=== PATIENT | female | born 1960 ===

== ENCOUNTER 2018-09-26 16:57 | Emergency (ER) | payer MEDICAID ==
[2018-09-26] MEDS ORDERED: Sodium Chloride 0.9% 1,000 ML IV ONE (17:27)
--- NOTE | 2018-09-26 17:39 | ED PDOC ---
HPI: Headache Time Seen by Provider: 09/26/18 17:11 Chief Complaint (Nursing): Flu-like Symptoms Chief Complaint (Provider): Headache History Per: Patient History/Exam Limitations: no limitations Onset/Duration Of Symptoms: Days (x1 day) Current Symptoms Are (Timing): Still Present Quality: Pressure Associated Symptoms: Nausea. denies: Blurred Vision, Vomiting Additional Complaint(s): Patient is a 58 year old female who reports onset of headache rated 8/10, since yesterday morning. She states that it is a global headache described as pressure. Patient denies any history of similar headaches in the past. She also has nausea, non bloody diarrhea, tactile fever, and chills for the past x2 days. Patient took Tylenol this morning with no relief. She denies any sick contact or travel. Otherwise: (+) global headache, (+) tactile fever, (+) chills, (+) nausea, (+) diarrhea, (-) vomiting, (-) photophobia, (-) URI symptoms, (-) trauma, (-) subjective neurologic symptoms, (-) rash, (-) visual changes, (-) weakness, (-) numbness, (-) neck pain. PMD: Amy Gleason Past Medical History Reviewed: Historical Data, Nursing Documentation, Vital Signs Vital Signs: Last Vital Signs Temp 100.1 F H 09/26/18 17:07 Pulse 99 H 09/26/18 17:07 Resp 16 09/26/18 17:07 BP 136/73 09/26/18 17:07 Pulse Ox 98 09/26/18 17:07 - Medical History PMH: Hyperlipidemia - Surgical History Surgical History: No Surg Hx - Family History Family History: States: Unknown Family Hx - Social History Current smoker - smoking cessation education provided: No Ex-Smoker (has not smoked in the last 12 months): No Alcohol: None Drugs: Denies - Home Medications Home Medications: Ambulatory Orders Medication Instructions Recorded Acetaminophen [Acetaminophen 8 650 mg PO Q8 PRN #21 tablet.er 09/26/18 Hour] Atorvastatin [Lipitor] 20 mg PO DAILY 09/26/18 Oseltamivir Phosphate [Tamiflu] 75 mg PO BID #10 capsule 09/26/18 RX: Naproxen 500 mg PO BID PRN #20 tab 12/15/18 - Allergies Allergies/Adverse Reactions: Allergies Allergy/AdvReac Type Severity Reaction Status Date / Time No Known Allergies Allergy Verified 09/26/18 17:09 Review of Systems ROS Statement: Except As Marked, All Systems Reviewed And Found Negative Constitutional: Positive for: Fever, Chills Eyes: Negative for: Vision Change Gastrointestinal: Positive for: Nausea, Diarrhea. Negative for: Vomiting, Melena, Hematochezia Musculoskeletal: Negative for: Neck Pain Skin: Negative for: Rash Neurological: Positive for: Headache. Negative for: Weakness, Numbness Physical Exam - Reviewed Nursing Documentation Reviewed: Yes Vital Signs Reviewed: Yes - Physical Exam Comments: GENERAL APPEARANCE: Patient is awake, alert, oriented x 3, in no acute distress. SKIN: Warm, dry; (-) cyanosis; (-) rash. HEAD: (-) scalp swelling or tenderness, (-) temporal artery tenderness. EYES: (-) conjunctival pallor, (-) scleral icterus. ENMT: Pharynx: clear, uvula midline (-) exudate (-) erythema. TMs: nonbulging, nonerythematous bilaterally. (-) sinus tenderness; mucous membranes are moist. NECK: Supple, FROM (-) tenderness, (-) stiffness, (-) meningismus, (-) lymphadenopathy. CHEST AND RESPIRATORY: (-) rales, (-) rhonchi, (-) wheezes; breath sounds equal bilaterally. Respirations nonlabored. HEART AND CARDIOVASCULAR: (-) irregularity ABDOMEN AND GI: Soft; (-) tenderness (-) guarding (-) distention (-) CVA tenderness. EXTREMITIES: (-) deformity. NEURO AND PSYCH: Mental status as above. back hoe operator: Pupils equal and reactive; EOMI and painless; (-) facial asymmetry; tongue and uvula midline. Strength symmetric. Gait: steady. Speech: clear. Cerebellar tests intact. - Laboratory Results Result Diagrams: 09/26/18 17:49 09/26/18 17:49 - ECG O2 Sat by Pulse Oximetry: 98 (RA) Pulse Ox Interpretation: Normal Medical Decision Making Medical Decision Making: Time: 17:25 Impression: Headache Plan: --CT head without contrast --BMP --CBC with differential --Sodium chloride 1,000 ml --Tylenol 650 mg PO --Zofran 4 mg IVP --Glucose, blood --Influenza A B --Urinalysis Accucheck: [address] head without contrast reviewed, radiology report follows CT FINDINGS: BRAIN No acute intraparenchymal hemorrhage. No mass lesion. No abnormal enhancement. No CT evidence for acute territorial infarct. No midline shift or extra-axial collections. VENTRICLES: No hydrocephalus. ORBITS: The orbits are unremarkable. SINUSES AND MASTOIDS: The paranasal sinuses and mastoid air cells are clear. BONES: No fracture. IMPRESSION: No acute intracranial abnormality. In light of CT findings, Toradol 30mg IVP and Reglan 10mg IVP ordered. 1829 Influenza: positive Tamiflu 75mg PO ordered. CBC and BMP grossly unremarkable. 1899 On re-evaluation, patient reports improvement of symptoms. On exam, patient remains AAOx3, in no acute distress. Lungs clear to auscultation, cardiac RRR, abdomen soft, non-tender, repeat neuro exam shows no focal findings. Vitals stable. Lab/Diagnostic results d/w the patient in great detail. Diagnosis of influenza, fever, headache d/w the patient. Based on history, exam and diagnostic results, plan will be for outpatient follow up. Patient instructed to follow-up with pmd / referral provided / the clinic in 1- 2 days without fail. Advised to take medication as prescribed. Return to the emergency room at any time for any new or worsening symptoms. Patient states she fully agrees with and understands discharge instructions. States that she agrees with the plan and disposition. Verbalized and repeated discharge instructions and plan. I have given the patient opportunity to ask any additional questions. Scribe Attestation: Documented by Matt Garcia, acting as a scribe for Megha Nolasco Provider Scribe Attestation: All medical record entries made by the Scribe were at my direction and personally dictated by me. I have reviewed the chart and agree that the record accurately reflects my personal performance of the history, physical exam, medical decision making, and the department course for this patient. I have also personally directed, reviewed, and agree with the discharge instructions and disposition. Disposition - Clinical Impression Clinical Impression: Influenza, Headache, Fever - Patient ED Disposition Is Patient to be Admitted: No Counseled Patient/Family Regarding: Studies Performed, Diagnosis, Need For Followup, Rx Given - Disposition Referrals: Amy Gleason APN [Family Provider] - Disposition: Routine/Home Disposition Time: 19:00 Condition: STABLE Additional Instructions: La atencin mdica de emergencia que recibi hoy se dirigi a kelechi sntomas agudos. Si le recetaron algn medicamento, llnelo y tmelo segn las indicaciones. Los sntomas pueden tardar varios gallagher en resolverse. Regrese al Departamento de Emergencias si kelechi sntomas empeoran, no mejoran o si tiene otros problemas. Comunquese con lozoya mdico dentro de 2 gallagher para esther nueva evaluacin y nati un seguimiento o llame a tono de los mdicos / clnicas a los que hoffman sido referido y que figuran en el formulario de Informacin de visita al paciente que se incluye en lozoya paquete de génesis. Lleve todos los documentos que le entregaron al momento del génesis junto con todos los medicamentos que est tomando para lozoya visita de seguimiento. Nuestro tratamiento no puede reemplazar la atencin mdica continua por parte de un proveedor de atencin primaria (PCP) fuera del departamento de emergencias. Prescriptions: Acetaminophen [Acetaminophen 8 Hour] 650 mg PO Q8 PRN #21 tablet.er PRN Reason: Fever >100.4 F RX: Naproxen 500 mg PO BID PRN #20 tab PRN Reason: Headache Oseltamivir Phosphate [Tamiflu] 75 mg PO BID #10 capsule Instructions: Flu, Headache, Adult (DC), Fever, Adult (DC), When to Worry About a Fever Forms: [employer] (Tajik) Print Language: FRENCH - POA Present On Arrival: None Results - Lab Results Lab Results: 09/26/18 09/26/18 09/26/18 17:49 17:49 17:49 WBC 7.9 RBC 4.12 Hgb 12.0 Hct 37.1 MCV 90.1 MCH 29.1 MCHC 32.3 L RDW 13.1 Plt Count 190 MPV 10.2 Neut % (Auto) 73.7 Lymph % (Auto) 18.0 L Hunt % (Auto) 8.0 Eos % (Auto) 0.0 Baso % (Auto) 0.3 Neut # (Auto) 5.8 Lymph # (Auto) 1.4 Hunt # (Auto) 0.6 Eos # (Auto) 0.0 Baso # (Auto) 0.0 Sodium 137 Potassium 3.3 L Chloride 103 Carbon Dioxide 22 Anion Gap 15 BUN 20 H Creatinine 0.8 Est GFR ( Amer) > 60 Est GFR (Non-Af Amer) > 60 POC Glucose (mg/dL) Random Glucose 116 H Calcium 8.9 Influenza Typ A,B (EIA) Pos for influenza a H 09/26/18 17:45 WBC RBC Hgb Hct MCV MCH MCHC RDW Plt Count MPV Neut % (Auto) Lymph % (Auto) Hunt % (Auto) Eos % (Auto) Baso % (Auto) Neut # (Auto) Lymph # (Auto) Hunt # (Auto) Eos # (Auto) Baso # (Auto) Sodium Potassium Chloride Carbon Dioxide Anion Gap BUN Creatinine Est GFR ( Amer) Est GFR (Non-Af Amer) POC Glucose (mg/dL) 110 Random Glucose Calcium Influenza Typ A,B (EIA)
[2018-09-26 18:07] LABS: BASO % 0.3 % (0.0-2.0); LYMPH # 1.4 K/uL (1.0-4.3); MEAN CELL VOLUME 90.1 fl (81.0-99.0); MEAN CORPUSCULAR HEMOGLOBIN 29.1 pg (27.0-31.0); MEAN CORPUSCULAR HGB CONC 32.3 g/dL (33.0-37.0); MEAN PLATELET VOLUME 10.2 fl (7.2-11.7); MONO # 0.6 K/uL (0.0-0.8); NEUT # 5.8 K/uL (1.8-7.0); NEUT % 73.7 % (50.0-75.0); NRBC % 0.1 % (0.0-0.0); RBC 4.12 Mil/uL (3.80-5.20); RED CELL DISTRIBUTION WIDTH 13.1 % (11.5-14.5); WHITE BLOOD COUNT 7.9 K/uL (4.8-10.8)
[2018-09-26 18:21] LABS: BLOOD UREA NITROGEN 20 mg/dl (7-17); CALCIUM 8.9 mg/dL (8.4-10.2); GFR NON-AFRICAN AMERICAN > 60
[2018-09-26 18:36] LABS: SQUAMOUS EPITHIAL < 1 /hpf (0-5); URINE BILIRUBIN NEGATIVE (NEGATIVE); URINE CLARITY CLEAR (Clear); URINE COLOR YELLOW (YELLOW); URINE GLUCOSE (UA) NEG (NEGATIVE); URINE LEUKOCYTE ESTERASE TRACE Leu/uL (Negative); URINE PROTEIN NEGATIVE (NEGATIVE); URINE UROBILINOGEN 0.2-1.0 mg/dL (0.2-1.0)
[2018-09-26 18:42] LABS: URINE BACTERIA RARE (<OCC)
[2018-09-26 18:43] LABS: URINE BLOOD NEGATIVE (NEGATIVE)
[2018-09-26 18:57] VITALS: BP 101/60; PULSE 76; RESP 19; TEMP 99
[2018-09-26 19:04] VITALS: O2SAT 98
--- NOTE | 2018-09-27 15:06 | CT ---
Date of service: 09/26/2018 PROCEDURE: CT HEAD WITHOUT CONTRAST. HISTORY: headache, nausea COMPARISON: None available. TECHNIQUE: Axial computed tomography images were obtained through the head/brain without intravenous contrast. Radiation dose: Total exam DLP = 816.82 mGy-cm. This CT exam was performed using one or more of the following dose reduction techniques: Automated exposure control, adjustment of the mA and/or kV according to patient size, and/or use of iterative reconstruction technique. FINDINGS: HEMORRHAGE: No intracranial hemorrhage. BRAIN: No mass effect or edema. No atrophy or chronic microvascular ischemic changes. VENTRICLES: Unremarkable. No hydrocephalus. CALVARIUM: Unremarkable. PARANASAL SINUSES: Unremarkable as visualized. No significant inflammatory changes. MASTOID AIR CELLS: Unremarkable as visualized. No inflammatory changes. OTHER FINDINGS: None. IMPRESSION: Unremarkable noncontrast head CT. Concordant preliminary report from [facility], 09/26/2018 6:07 p.m..
== END 2018-09-26 19:16 | disposition home or self-care (01) ==
LOC: H.ER 16:57
DX: J11.1 Influenza due to unidentified influenza virus with other respiratory manifestations (principal); R51 Headache; R50.9 Fever, unspecified; Z87.891 Personal history of nicotine dependence
CPT/HCPCS: 70450; 80048; 81003; 82948; 85025; 87040; 87804; 96374; 96375; 99285; J1885; J2405; J2765; J7040